=== PATIENT | female | born 1965 | race Caucasian/White ===

== ENCOUNTER 2024-03-16 01:35 | Emergency (ER) | payer OTHER, SELFPAY ==
[2024-03-16 01:37] VITALS: BP 140/82
[2024-03-16 02:14] VITALS: BP 132/83
[2024-03-16 02:47] VITALS: BMI 19.3
[2024-03-16 03:00] VITALS: BP 116/78
[2024-03-16 03:18] LABS: % Basophils 0.1 % (0-2); % Eosinophils 4.3 % (0-6); % Immature Granulocytes 0.1 % (0-0.5); % Lymphocytes 36.2 % (20.5-51.1); % Monocytes 9.7 % (1.7-9.3); % Neutrophils 49.6 % (42.2-75.2); Absolute Eosinophils 0.3 10^3/uL (0-0.7); Absolute Lymphocytes 2.5 10^3/uL (1.2-3.4); Absolute Monocytes 0.7 10^3/uL (0.1-0.6); Absolute Neutrophils 3.4 10^3/uL (1.4-6.5); Hematocrit 33.9 % (37.0-47.0); Hemoglobin 11.6 g/dL (12.0-16.0); Mean Corp Hgb Conc. 34.2 g/dL (33.0-37.0); Mean Corpuscular Hgb 30.1 pg (27.0-31.0); Mean Corpuscular Volume 87.8 fL (81.0-99.0); Mean Platelet Volume 10.1 fL (7.4-10.4); Nucleated Red Blood Cells % 0 %; Platelet Count 263 10^3/uL (130-400); Red Blood Cell Count 3.86 10^6/uL (4.20-5.40); Red Cell Dist. Width 12.5 % (11.5-14.5); White Blood Cell Count 6.9 10^3/uL (4.8-10.8)
[2024-03-16 03:40] LABS: ALT (SGPT) 39 U/L (0-35); AST (SGOT) 41 U/L (14-36); Albumin 4.6 g/dl (3.5-5.0); Alcohol 162 mg/dl; Alkaline Phosphatase 79 U/L (38-126); Blood Urea Nitrogen 11 mg/dl (7-17); Calcium 8.8 mg/dl (8.4-10.2); Carbon Dioxide 23 mmol/L (22-30); Chloride 96 mmol/L (98-107); Estimated Creatinine Clearance 91 ml/min; Glucose 103 mg/dl (70-99); Potassium 4.4 mmol/L (3.5-5.1); Sodium 133 mmol/L (135-145); Total Bilirubin 0.2 mg/dl (0.2-1.3); Total Protein 7.1 g/dl (6.3-8.2); eGFR > 60.00
[2024-03-16 04:00] VITALS: BP 106/76
[2024-03-16] MEDS: ZOFRAN 4 MG IV (04:49)
[2024-03-16 05:00] VITALS: BP 104/71
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
[2024-03-16 05:13] LABS: Amphetamines Negative (Negative); Barbiturates Negative (Negative); Benzodiazepines Negative (Negative); Buprenorphine Negative (Negative); Cocaine Negative (Negative); Marijuana Negative (Negative); Methadone Negative (Negative); Methamphetamines Negative (Negative); Opiates Negative (Negative); Phencyclidine Negative (Negative); Tricyclic Antidepressants Negative (Negative)
[2024-03-16 06:12] VITALS: BP 103/82; BP 104/78; BP 120/70; PULSE 82; PULSE 86; PULSE 89
== END 2024-03-16 07:00 | disposition home or self-care (01) ==
LOC: EMR 01:35
PROVIDERS: EMERGENCY PHYSICIAN Student in an Organized Health Care Education/Training Program
DX: R42 Dizziness and giddiness (principal)
CPT/HCPCS: 99285; 96374; 71046; 80053; 80306; 82077; 85025; 93005